=== PATIENT | female | born 1950 | race Asian ===

== ENCOUNTER 2016-11-07 16:48 | Inpatient (IN) | payer MEDICAID ==
[~2016-11-07] VITALS: Ht 162.6 cm; Wt 55.4 kg
[2016-11-07] MEDS ORDERED: SIMV-259 PO (17:00)
[2016-11-07] MEDS ORDERED: ASPI81 PO (17:00)
[2016-11-07] MEDS ORDERED: LISI-660 PO (17:00)
[2016-11-07 19:26] LABS: PROTHROMBIN TIME 10.4 SEC (9.4-11.6)
[2016-11-07 19:36] LABS: ANION GAP 10 mmol/L (8-16); CALCIUM, TOTAL 8.1 mg/dL (8.8-10.5); CARBON DIOXIDE 24 mmol/L (22-29); CHLORIDE 99 mmol/L (98-107); CREATININE 1.18 mg/dL (0.60-1.30); GLOMERULAR FILTR. RATE CALC 46 mL/min (>60); POTASSIUM 4.2 mmol/L (3.5-5.1); SODIUM SERUM 133 mmol/L (136-145); UREA NITROGEN, BLOOD 27 mg/dL (7-18)
[2016-11-07 19:37] LABS: MEAN CORPUSCULAR HEMOGLOBIN 15.8 pg (26.0-34.0); MEAN CORPUSCULAR HGB CONC 28.3 G/dL (31.0-37.0); MEAN CORPUSCULAR VOLUME 56 fL (80-100); PLATELET COUNT (AUTO) 544 K/uL (150-450); RED CELL DISTRIBUTION WIDTH 24.7 % (11.5-14.5); WHITE BLOOD COUNT (AUTO) 8.9 K/uL (4.5-11.0)
[2016-11-07 19:39] LABS: HEMOGLOBIN 4.1 g/dL (12.0-16.0)
[2016-11-07 19:40] LABS: HEMATOCRIT 14.5 % (36-46)
[2016-11-07 19:42] LABS: ALANINE AMINOTRANSFERASE 18 U/L (12-78); ALBUMIN 3.3 g/dL (3.4-5.0); ASPARTATE AMINOTRANSFERASE 16 U/L (15-37); BILIRUBIN,TOTAL 0.4 mg/dL (0.1-1.0); CREATINE KINASE, TOTAL 38 U/L (26-192); TOTAL PROTEIN, SERUM 7.5 g/dL (6.4-8.2)
[2016-11-07 19:45] LABS: B-TYPE NATRIURETIC PEPTIDE 24 pg/mL (0-100)
[2016-11-07 21:08] LABS: PROTHROMBIN TIME 10.3 SEC (9.4-11.6)
[2016-11-07] MEDS ORDERED: ALBUTEROL SULFATE 2.5 MG/0.5 ML NEB SOLUTION NEB PRN (21:45)
[2016-11-07] MEDS ORDERED: MAGNESIUM HYDROXIDE SUSPENSION 30 ML UDCUP PO PRN (21:45)
[2016-11-07] MEDS ORDERED: ACETAMINOPHEN 325 MG TABLET PO PRN (21:45)
[2016-11-07 22:21] VITALS: BP 114/64
[2016-11-07 22:21] LABS: LYMPHOCYTES % (MANUAL) 28 % (22-44); TOTAL CELLS COUNTED 100
[2016-11-07 22:22] LABS: RBC MORPHOLOGY COMMENT ABNORMAL R
[2016-11-07 22:38] VITALS: BP 121/56
[2016-11-07 22:58] VITALS: BP 126/53
[2016-11-07 23:11] VITALS: BP 126/53
[2016-11-07 23:28] VITALS: BP 127/72
[2016-11-08] VITALS (21 sets, daily range): BP systolic 104–143; BP diastolic 49–75
[2016-11-08] MEDS ORDERED: SODIUM CHLORIDE 0.9% 0 ML ONE (01:25)
[2016-11-08] MEDS: SOD FERRIC GLUC COMPLX/SUCROSE 125 MG in SODIUM CHLORIDE 0.9% 100 ML IV SCH ×2 (01:27→22:21)
[2016-11-08] MEDS ORDERED: SODIUM CHLORIDE 0.9% 250 ML IV ONE (04:12)
[2016-11-08] MEDS: PANTOPRAZOLE SODIUM 80 MG in SODIUM CHLORIDE 0.9% 500 ML IV SCH ×3 (04:20→19:32)
[2016-11-08] MEDS ORDERED: PROPOFOL 1% 20 ML VIAL IVP ONE (05:02)
[2016-11-08] MEDS ORDERED: SODIUM CHLORIDE 0.9% 500 ML IV ONE (08:26)
[2016-11-08] MEDS: DOCUSATE SODIUM 100 MG CAPSULE PO SCH ×2 (09:00→22:16)
[2016-11-08 11:45] LABS: BASOPHILS # (AUTO) 0.03 K/uL (0.00-0.20); BASOPHILS % (AUTO) 0.5 % (0.0-2.0); EOSINOPHILS # (AUTO) 0.09 K/uL (0.00-0.70); EOSINOPHILS % (AUTO) 1.53 % (1.0-6.0); HEMATOCRIT 23.2 % (36-46); HEMOGLOBIN 7.3 g/dL (12.0-16.0); LYMPHOCYTES # (AUTO) 1.7 K/uL (1.0-4.8); LYMPHOCYTES % (AUTO) 30.3 % (22.0-44.0); MEAN CORPUSCULAR HEMOGLOBIN 21.3 pg (26.0-34.0); MEAN CORPUSCULAR HGB CONC 31.6 G/dL (31.0-37.0); MEAN CORPUSCULAR VOLUME 67 fL (80-100); MONOCYTES # (AUTO) 0.5 K/uL (0.1-1.0); MONOCYTES % (AUTO) 8.4 % (2.0-9.0); NEUTROPHILS # (AUTO) 3.4 K/uL (1.8-7.7); NEUTROPHILS % (AUTO) 59.2 % (40.0-70.0); PLATELET COUNT (AUTO) 426 K/uL (150-450); RED BLOOD CELL COUNT(AUTO) 3.44 MIL/uL (4.00-5.20); RED CELL DISTRIBUTION WIDTH 33.5 % (11.5-14.5); WHITE BLOOD COUNT (AUTO) 5.7 K/uL (4.5-11.0)
[2016-11-08] MEDS ORDERED: SODIUM CHLORIDE 0.9% 1,000 ML IV ONE ×2 (12:00→12:09)
[2016-11-08 12:01] LABS: RBC MORPHOLOGY COMMENT ABNORMAL RBC MORPH
[2016-11-08] MEDS ORDERED: PEG 3350/NA SULF,BICARB,CL/KCL 4000 ML SOLUTION PO ONE (13:30)
[2016-11-08] MEDS ORDERED: SODIUM CHLORIDE 0.9% 100 ML ONE (22:11)
[2016-11-09 04:50] VITALS: BP 134/60
[2016-11-09] MEDS: PANTOPRAZOLE SODIUM 80 MG in SODIUM CHLORIDE 0.9% 500 ML IV SCH ×2 (05:06→22:09)
[2016-11-09 07:06] LABS: GLUCOSE,POINT OF CARE 90 MG/DL (70-110)
[2016-11-09 07:38] VITALS: BP 115/56
[2016-11-09] MEDS: SIMVASTATIN 10 MG TABLET PO SCH (09:00)
[2016-11-09] MEDS: LISINOPRIL 5 MG TABLET PO SCH (09:00)
[2016-11-09] MEDS: DOCUSATE SODIUM 100 MG CAPSULE PO SCH ×2 (09:00→20:19)
[2016-11-09] MEDS ORDERED: ASPIRIN 81 MG CHEWABLE TABLET PO SCH (09:00)
[2016-11-09] MEDS ORDERED: SODIUM CHLORIDE 0.9% 1,000 ML IV ONE ×2 (11:00→14:23)
[2016-11-09] MEDS ORDERED: LIDOCAINE HCL/PF 2% 5 ML VIAL INJ ONE (12:00)
[2016-11-09] MEDS ORDERED: PROPOFOL 1% 20 ML VIAL IVP ONE (12:00)
[2016-11-09 13:30] VITALS: BP 115/68
[2016-11-09 15:37] VITALS: BP 110/54
[2016-11-09 19:14] VITALS: BP 109/56
[2016-11-09] MEDS: SOD FERRIC GLUC COMPLX/SUCROSE 125 MG in SODIUM CHLORIDE 0.9% 100 ML IV SCH (21:33)
[2016-11-09 23:27] VITALS: BP 114/62
[2016-11-10] VITALS (20 sets, daily range): BP systolic 121–170; BP diastolic 55–80
[2016-11-10 07:01] LABS: BASOPHILS % (AUTO) 0.3 % (0.0-2.0); HEMATOCRIT 22.5 % (36-46); LYMPHOCYTES # (AUTO) 2.2 K/uL (1.0-4.8); LYMPHOCYTES % (AUTO) 36.5 % (22.0-44.0); MEAN CORPUSCULAR HEMOGLOBIN 20.5 pg (26.0-34.0); MEAN CORPUSCULAR HGB CONC 29.8 G/dL (31.0-37.0); MEAN CORPUSCULAR VOLUME 69 fL (80-100); MONOCYTES # (AUTO) 0.4 K/uL (0.1-1.0); MONOCYTES % (AUTO) 6.3 % (2.0-9.0); NEUTROPHILS # (AUTO) 3.3 K/uL (1.8-7.7); NEUTROPHILS % (AUTO) 54.9 % (40.0-70.0); PLATELET COUNT (AUTO) 433 K/uL (150-450); RED BLOOD CELL COUNT(AUTO) 3.26 MIL/uL (4.00-5.20); RED CELL DISTRIBUTION WIDTH 33.9 % (11.5-14.5)
[2016-11-10 07:25] LABS: WHITE BLOOD COUNT (AUTO) 7.3 K/uL (4.5-11.0)
[2016-11-10 07:26] LABS: HEMOGLOBIN 6.7 g/dL (12.0-16.0)
[2016-11-10] MEDS: LISINOPRIL 5 MG TABLET PO SCH (08:15)
[2016-11-10] MEDS: DOCUSATE SODIUM 100 MG CAPSULE PO SCH ×2 (08:15→20:11)
[2016-11-10] MEDS: SIMVASTATIN 10 MG TABLET PO SCH (08:15)
[2016-11-10] MEDS: PANTOPRAZOLE SODIUM 80 MG in SODIUM CHLORIDE 0.9% 500 ML IV SCH ×2 (08:16→20:11)
[2016-11-10 09:42] LABS: RBC MORPHOLOGY COMMENT ABNORMAL RBC MORPH
[2016-11-10] MEDS ORDERED: SODIUM CHLORIDE 0.9% 500 ML IV ONE ×3 (09:55→20:11)
[2016-11-10] MEDS: SOD FERRIC GLUC COMPLX/SUCROSE 125 MG in SODIUM CHLORIDE 0.9% 100 ML IV SCH (20:11)
[2016-11-11 04:00] VITALS: BP 130/77
[2016-11-11] MEDS: PANTOPRAZOLE SODIUM 80 MG in SODIUM CHLORIDE 0.9% 500 ML IV SCH (06:20)
[2016-11-11 08:06] VITALS: BP 161/80
[2016-11-11 08:20] LABS: BASOPHILS % (AUTO) 0.4 % (0.0-2.0); EOSINOPHILS % (AUTO) 2.5 % (1.0-6.0); HEMATOCRIT 29.1 % (36-46); HEMOGLOBIN 8.9 g/dL (12.0-16.0); LYMPHOCYTES # (AUTO) 1.5 K/uL (1.0-4.8); LYMPHOCYTES % (AUTO) 19.6 % (22.0-44.0); MEAN CORPUSCULAR HEMOGLOBIN 22.5 pg (26.0-34.0); MEAN CORPUSCULAR HGB CONC 30.6 G/dL (31.0-37.0); MEAN CORPUSCULAR VOLUME 74 fL (80-100); MONOCYTES # (AUTO) 0.4 K/uL (0.1-1.0); MONOCYTES % (AUTO) 5.6 % (2.0-9.0); NEUTROPHILS # (AUTO) 5.4 K/uL (1.8-7.7); NEUTROPHILS % (AUTO) 71.9 % (40.0-70.0); PLATELET COUNT (AUTO) 394 K/uL (150-450); RED BLOOD CELL COUNT(AUTO) 3.95 MIL/uL (4.00-5.20); RED CELL DISTRIBUTION WIDTH 34.2 % (11.5-14.5)
[2016-11-11 08:28] LABS: WHITE BLOOD COUNT (AUTO) 8.4 K/uL (4.5-11.0)
[2016-11-11 08:29] LABS: RBC MORPHOLOGY COMMENT ABNORMAL RBC MORPH
[2016-11-11] MEDS: SIMVASTATIN 10 MG TABLET PO SCH (09:11)
[2016-11-11] MEDS: DOCUSATE SODIUM 100 MG CAPSULE PO SCH (09:11)
[2016-11-11] MEDS: LISINOPRIL 5 MG TABLET PO SCH (09:11)
[2016-11-11 11:00] VITALS: BP 157/74
[2016-11-11] MEDS ORDERED: OMEP20 PO (15:04)
[2016-11-11] MEDS ORDERED: FERR-72 PO (15:06)
[2016-11-11] MEDS ORDERED: DSS100 PO (15:06)
== END 2016-11-11 15:20 | disposition home or self-care (01) | DRG 254 ==
LOC: EMS 16:52 → 5N 21:14 → 6N 21:14
PROVIDERS: ADMIT Internal Medicine; ATTEND Internal Medicine
PROC: 30233N1 Transfusion of Nonautologous Red Blood Cells into Peripheral Vein, Percutaneous Approach (ICD-10-PCS; 2016-11-08)
PROC: 0DB98ZX Excision of Duodenum, Via Natural or Artificial Opening Endoscopic, Diagnostic (ICD-10-PCS; principal; 2016-11-08 13:00)
PROC: 0DJD8ZZ Inspection of Lower Intestinal Tract, Via Natural or Artificial Opening Endoscopic (ICD-10-PCS; 2016-11-09)
DX: K92.1 Melena (principal); E44.0 Moderate protein-calorie malnutrition; E78.00 Pure hypercholesterolemia, unspecified; E78.5 Hyperlipidemia, unspecified; E86.0 Dehydration; D50.9 Iron deficiency anemia, unspecified; I10 Essential (primary) hypertension; K29.70 Gastritis, unspecified, without bleeding; R51 Headache; K29.80 Duodenitis without bleeding; Z79.82 Long term (current) use of aspirin; Z79.899 Other long term (current) drug therapy; Z98.890 Other specified postprocedural states; Z68.21 Body mass index [BMI] 21.0-21.9, adult
CPT/HCPCS: 36430; 82271; 82962; 86850; 86900; 86901; 86920; 88305; 93005; 99285; C9113; J2704; J2916; J3490; J7030; J7040; J7050; P9016